=== PATIENT | male | born 1970 | race Caucasian/White ===

== ENCOUNTER → 2019-12-19 | Outpatient (CLI) | payer OTHER | LOC: CAT 14:31 | PROVIDERS: ATTEND Family Medicine | DX: Z13.6 Encounter for screening for cardiovascular disorders (principal); E78.00 Pure hypercholesterolemia, unspecified; I25.10 Atherosclerotic heart disease of native coronary artery without angina pectoris ==

== ENCOUNTER → 2020-11-30 | Outpatient (CLI) | payer OTHER | LOC: ULTRA 08:49 | PROVIDERS: ATTEND Nurse Practitioner | DX: R60.0 Localized edema (principal) ==